=== PATIENT | female | born 1980 | race Caucasian/White ===

== ENCOUNTER 2020-05-28 14:32 | Outpatient (REF) | payer OTHER, SELFPAY ==
[2020-05-28 14:49] LABS: COVID-19 Test Negative (Negative)
== END 2020-05-28 14:33 | disposition home or self-care (01) ==
LOC: HO.LAB 14:32
PROVIDERS: Visit Provider Internal Medicine
DX: Z20.828 Contact with and (suspected) exposure to other viral communicable diseases (principal)
CPT/HCPCS: 87635

== ENCOUNTER 2020-06-02 16:34 | Outpatient (REF) | payer OTHER, SELFPAY ==
[2020-06-02 17:44] LABS: COVID-19 Test Negative (Negative)
== END 2020-06-02 16:35 | disposition home or self-care (01) ==
LOC: HO.LAB 16:34
PROVIDERS: Visit Provider Internal Medicine
DX: Z20.828 Contact with and (suspected) exposure to other viral communicable diseases (principal)
CPT/HCPCS: 87635

== ENCOUNTER 2020-09-08 12:16 | Outpatient (REF) | payer OTHER, SELFPAY ==
[2020-09-08 12:49] LABS: COVID-19 Test Negative (Negative)
== END 2020-09-08 12:17 | disposition home or self-care (01) ==
LOC: HO.EMPCOV 12:16
PROVIDERS: Visit Provider Internal Medicine
DX: Z20.822 Contact with and (suspected) exposure to COVID-19 (principal)
CPT/HCPCS: 36415; 87635; C9803

== ENCOUNTER 2021-05-18 19:32 | Outpatient (REF) | payer OTHER, SELFPAY | END 2021-05-18 19:33 | disposition home or self-care (01) | LOC: HO.LAB 19:32 | PROVIDERS: Visit Provider Physician Assistant Medical | DX: Z13.89 Encounter for screening for other disorder (principal) | CPT/HCPCS: 36415; 84702 ==

== ENCOUNTER 2021-10-04 14:44 | Emergency (ER) | payer OTHER, SELFPAY ==
--- NOTE | ~2021-10-04 | XR_ITS ---
EXAMINATION: XR ANKLE, LEFT CLINICAL INFORMATION: Left ankle pain and swelling. Patient . COMPARISON: None TECHNIQUE: AP, lateral, and mortise views of the left ankle. FINDINGS: There is no evidence of acute fracture or dislocation of the left ankle. No significant soft tissue swelling is appreciated. Joint spaces are maintained. Ankle mortise intact. XR/XR ankle LT min 3V IMPRESSION: No significant bony abnormality of the left ankle identified.
--- NOTE | ~2021-10-04 | US_ITS ---
EXAMINATION: ULTRASOUND LEFT LOWER EXTREMITY CLINICAL INFORMATION: Question of left Achilles tendon rupture. COMPARISON: None TECHNIQUE: Linear transducer was used to examine the left Achilles tendon. FINDINGS: The tendon appears intact. No fluid collections, abnormal calcifications or masses are seen. US/US extremity nonvascular IMPRESSION: Normal-appearing Achilles tendon
[2021-10-04 15:31] VITALS: BP 122/69; PULSE 77; RESP 16; TEMP 36.8; O2SAT 99; BMI 25.4
--- NOTE | 2021-10-04 16:01 | ED_ITS ---
HPI - Extremity Injury (Lower) General Chief Complaint: Extremity Injury, Lower Stated Complaint: fall Time Seen by Provider: 10/04/21 14:59 Source: patient and family ( at bedside) Mode of arrival: ambulatory Limitations: no limitations History of Present Illness HPI Narrative: 41-year-old female who is currently 30 weeks being followed by Mariza wayne presenting to the ED with complaints of right ankle pain/swelling after she had a mechanical fall in her driveway where her left ankle basically twisted in an eversion type away and she fell right onto her foot. She reports that she fell in a sitting position she did not hit her head or lose consciousness. There was no prolonged down time. She is not on any blood thinners. She denies any neck pain or injury or abdominal pain or injury. She reports that she feels her baby moving. She denies any back pain or injury. She denies any other injuries complaints or concerns. She denies any vaginal bleeding. MD complaint: ankle injury, foot injury and fall Onset (ago): hour(s) (Prior to arrival) Injury: Left: ankle Type of Injury: eversion Place: street/outdoors (In her driveway) Severity: mild Relieving factors: nothing Exacerbating factors: weight bearing, movement and palpation Context: fall Associated symptoms: swelling and ambulatory Other symptoms: none Treatments prior to arrival: other (Linus bandage) Related Data Previous Rx's Medication Instructions Recorded acetaminophen 500 mg tablet 1,000 mg PO QID PRN #14 tab 10/04/21 (Tylenol Extra Strength) Allergies Allergy/AdvReac Type Severity Reaction Status Date / Time No Known Allergies Allergy Verified 10/04/21 15:01 Review of Systems Review of Systems: Constitutional : No Weight loss, No Fever, No Chills, No Night Sweats, No Fatigue, No Malaise ENT/Mouth : No Hearing loss, No Ear Pain, No Nasal Congestion, No Sinus Pain, No Hoarseness, No sore throat, No Rhinorrhea, No Swallowing Difficulty Eyes: No Eye Pain, No Swelling, No Redness, No Foreign Body, No Discharge, No Vision Changes Cardiovascular : No Chest Pain, No SOB, No Dyspnea on Exertion, No Orthopnea, No Edema, No Palpitations Respiratory : No Cough, No Sputum, No Wheezing, No Smoke Exposure, No Dyspnea Gastrointestinal : No Nausea, No Vomiting, No Diarrhea, No Constipation, No abdominal Pain, No Hematochezia, No Melena Genitourinary : no irregular bleeding, No Dysuria, No Urinary Frequency, No Hematuria, No Urinary Incontinence, No Urgency, No Flank Pain, No Urinary Flow Changes, No Hesitancy Musculoskeletal : + right ankle pain/swelling, No Myalgias Skin : No Skin Lesions, No rash Neuro : No Weakness, No Numbness, No Paresthesias, No Loss of Consciousness, No Dizziness, No Headache Psych : No Anxiety/Panic, No Depression, No SI/HI/AH/VH, No Social Issues, Heme/Lymph: No Bruising, No Bleeding,No Lymphadenopathy Endocrine : No Polyuria, No Polydipsia, No Temperature Intolerance Yes all other systems are reviewed and are negative FOR[facility] Past Medical History Attestation statement: The following information was validated with the patient. Medical History No known health problems Social History Social History Advance Directives: No Advance Directives Information Provided: No Patient : Yes Physical Exam Vital Signs: Vital Signs: Last Vital Signs Temp 98.2 F 10/04/21 15:31 Pulse 77 10/04/21 15:31 Resp 16 10/04/21 15:31 BP 122/69 10/04/21 15:31 Pulse Ox 99 10/04/21 15:31 BMI result Body Mass Index 25.4 vital signs have been reviewed as normal and appeared to be correct. Blood pressure normal. Heart rate normal. Respiration rate normal. Temperature normal. Oxygen saturation normal. Appearance: Alert. Oriented X3. No acute distress. Head: Normal external exam. Normocephalic. Atraumatic. No Vanegas signs noted. No raccoon eyes noted Eyes: PERRLA. EOMI. Conjunctiva and sclera normal. Eyelids normal. ENT: EAC normal. TM's Normal. Pharynx normal. Uvula midline. Moist mucous membranes. Normal voice. Neck: Normal inspection. Neck supple. FROM. No adenopathy. No meningeal signs. No signs of trauma noted. CVS: Normal heart rate and rhythm. Heart sound normal. Pulses normal throughout. No murmurs/rales/gallops. Respiratory: No respiratory distress. Painless inspiration. Breath sounds normal. No wheezes/rales/rhonchi noted. No signs of trauma noted. No accessory muscle usage noted or decreased air movement noted. No signs of trauma. Abdomen: Gravid uterus consistent with dates. Active movement noted. Soft and nontender. Bowel sounds normal in all 4 quadrants. No distention noted. No organomegaly noted. No visible injury noted. Back: Full range of motion noted. Nontender. No signs of trauma. Patient n euro intact bilaterally and distally on all 4 extremities. Patient's reflexes intact bilaterally and distally on all 4 extremities. Skin: Skin warm and dry. Normal skin color. Normal skin turgor. No rashes/lesions/lacerations noted. Extremities: Patient with mild soft tissue swelling to the left lateral malleolus with tenderness so patient no obvious deformity or ligamentous or tendon injury noted. Achilles tendon appears to be intact. Otherwise all other Extremities exhibit normal range of motion and nontender. Neuro: Oriented X 3. No motor deficit. No sensory deficit. Reflexes normal. Normal steady gait. No focal neuro deficits noted. CN's II-XII intact bilaterally? Vascular: + radial pulses/+ 2 distal pedal pulses/+2 dorsalis pedis b/l. Normal cap refill. No cyanosis noted to upper extremity nails and lower extremity toes nails. Course Course Course Narrative: 15pm - 41-year-old female who is currently 30 weeks being followed by Mariza wayne presenting to the ED with complaints of right ankle pain/swelling after she had a mechanical fall in her driveway where her left ankle basically twisted in an eversion type away and she fell right onto her foot. She reports that she fell in a sitting position she did not hit her head or lose consciousness. The re was no prolonged down time. She is not on any blood thinners. She denies any neck pain or injury or abdominal pain or injury. She reports that she feels her baby moving. She denies any back pain or injury. She denies any other injuries complaints or concerns. She denies any vaginal bleeding. Plan: heart tones, x-ray of left ankle and ultrasound of Achilles tendon and then re-evaluate. Reevaluation(s) Reevaluation #1: heart tones normal. Left x-ray negative for any acute processes. Achilles tendon ultrasound within normal limits Achilles tendon is intact. Therefore at this time will DC home with instructions to follow up orthopedic is symptoms persist for longer than 2-3 weeks for further evaluation treatment. Along to follow-up with her OBGYN and to return if she has any abdominal pain or any vaginal bleeding or any paste mixer related complaints. Patient at bedside understand agree this plan. Time: 17:46 MDM - Extremity Injury (Lower) Medical Records Attestation: I reviewed the patient's medical records. Imaging Data Left ankle x-ray: Attestation: I personally reviewed and interpreted this imaging study as follows: Radiologist's impression: FINDINGS: There is no evidence of acute fracture or dislocation of the left ankle. No significant soft tissue swelling is appreciated. Joint spaces are maintained. Ankle mortise intact.? XR/XR ankle LT min 3V IMPRESSION: No significant bony abnormality of the left ankle identified. Ultrasound of Achilles area left lower extremity aspect: Attestation: I personally reviewed and interpreted this imaging study as follows: Radiologist's impression: FINDINGS: The tendon appears intact. No fluid collections, abnormal calcifications or masses are seen.? US/US extremity nonvascular IMPRESSION: Normal-appearing Achilles tendon? Discharge Plan Discharge Clinical Impression: Fall, Left ankle sprain Patient Disposition: Home, Self-Care Instructions: Ankle Sprain (ED) Prescriptions: New acetaminophen [Tylenol Extra Strength] 500 mg tablet 1,000 mg PO QID PRN (Reason: fever or pain) Qty: 14 0RF Referrals: Valentin Saab MD [Physician] - 2 weeks (If symptoms persist for longer than 2-3 weeks follow up Orthopedics for repeat evaluation treatment) Physician,None [Primary Care Provider] - 2 days (your pcp) Print Language: Occitan
== END 2021-10-04 18:00 | disposition home or self-care (01) ==
PROVIDERS: Emergency Provider Emergency Medicine
DX: O9A.213 Injury, poisoning and certain other consequences of external causes complicating pregnancy, third trimester (principal); S93.402A Sprain of unspecified ligament of left ankle, initial encounter; X50.1XXA Overexertion from prolonged static or awkward postures, initial encounter; Z3A.30 30 weeks gestation of pregnancy; Y93.89 Activity, other specified; Y92.014 Private driveway to single-family (private) house as the place of occurrence of the external cause; Y99.9 Unspecified external cause status
CPT/HCPCS: 73610; 76882; 99283; 99284